=== PATIENT | female | born 1980 | race Asian ===

== ENCOUNTER 2018-12-02 09:17 | Inpatient (IN) | payer OTHER ==
[~2018-12-02] VITALS: Ht 149.9 cm; Wt 71.8 kg
[2018-12-03] VITALS (59 sets, daily range): BP systolic 90–139; BP diastolic 50–85; PULSE 63–113; TEMP 97.4–98.1
--- NOTE | 2018-12-03 07:20 | NUR ---
Patient ambulatory to unit accompanied by significant other for scheduled induction of labor. Patient states only complication of is GDM-diet controlled. Patient states she has not checked her blood sugars recently. FHR and contraction monitors placed and explained. Consents signed. Assessment completed. Blood sugar checked using [facility] glucometer, 82. IV started in left wrist at 0745, labs collected from IV site and sent to lab. Lr infusing without difficulty. 0800: Pitocin started at 2mu/min.
[2018-12-03] MEDS ORDERED: ONE DAILY1 TA1 PO (07:33)
[2018-12-03 08:07] LABS: HEMOGLOBIN 11.5 g/dl (12.5-16.0); MEAN CELL VOLUME 84 fl (80.0-100.0); MEAN CORPUSCULAR HEMOGLOBIN 28 pg (27.0-31.0); MEAN CORPUSCULAR HGB CONC 33 g/dl (33.0-37.0); MEAN PLATELET VOLUME 9.9 fl (7.4-10.4); PLATELET COUNT 271 K/mm3 (130-400); RED BLOOD COUNT 4.16 M/mm3 (4.10-5.30); REDCELL DISTRIBUTION WIDTH-CV 13.6 % (11.5-14.5)
[2018-12-03 08:09] LABS: HEMATOCRIT 35.1 % (37.0-47.0)
--- NOTE | 2018-12-03 08:50 | NUR ---
0850: Dr. Macias on unit and FHR and contraction pattern reviewed. 0855: Dr. Macias at bedside. AROM with moderate amount of clear fluid noted. 2//-[address] Macias exam. FHR acceleration up to 180-190 bpm after AROM but back down to 150 bpm after 3 minutes. Pericare provided. Patient states she is feeling the contractions and they are getting stronger. Dr. Macias states patient can have an epidural when desires.
[2018-12-03 09:19] LABS: BAND 4 % (0-10); EOSINOPHIL 3 % (0-4); LYMPHOCYTE 33 % (20.0-51.0); NEUTROPHILS 55 % (42.0-75.2); PLATELET ESTIMATE NORMAL (NORMAL)
--- NOTE | 2018-12-03 10:05 | NUR ---
1005: Patient breathing heavily through contractions. Requests an epidural at this time. LR bolus infusing. Trina Dwyer CRNA called and notified of patient request.
--- NOTE | 2018-12-03 10:25 | NUR ---
1025: Trina Dwyer CRNA in room for epidural placement. Patient back from bathroom and sitting up at the side of bed for epidural. 1030: FHR not tracing consistently while patient in correct position for epidural, repostioning FHR monitor. At 1030 FHR tracing 90-110 bpm and slowly coming up to 120-125 bpm. Epidural single shot at 1037. No reaction to single shot. Epidural secured to patients back. Patient repositioned wedged left at 1045. See anesthesia records. SVE /-2. 1050: Trina Dwyer CRNA at bedside and epidural test dose. No reaction to test dose. Patient repositioned wedged right.
--- NOTE | 2018-12-03 16:30 | NUR ---
Dr. Macias at nurses station. Reviews FHR and contraction pattern. At bedside. SVE anterior lip noted. Will continue to monitor. 1642: Dr. Macias gives verbal order to increase pitocin to 8mu/min.
--- NOTE | 2018-12-03 17:10 | NUR ---
1710: Dr. Macias in patient room. SVE and cervix noted to be swollen and not complete. Dr. Macias discusses with patient the need to continue with section delivery due to failure to progress. Patient verbalizes understanding. Pitocin off at 1712. Patient prepped for OR. FHR and TOCO monitors off at 1721 and patient in OR at 1725.
[2018-12-04 02:15] VITALS: BP 117/70; PULSE 100; TEMP 98
--- NOTE | 2018-12-04 06:15 | NUR ---
Rests in bed, alert. Denies any needs at this time.
[2018-12-04 07:47] LABS: BASO % 0.2 % (0.0-2.0); EOS % 0.2 % (0-4.0); GRAN # 16.2 (1.4-6.5); HEMATOCRIT 30.4 % (37.0-47.0); HEMOGLOBIN 10.3 g/dl (12.5-16.0); LYMPH # 1.9 (1.2-3.4); LYMPH % 9.7 % (20.0-51.0); MEAN CELL VOLUME 84 fl (80.0-100.0); MEAN CORPUSCULAR HEMOGLOBIN 28 pg (27.0-31.0); MEAN CORPUSCULAR HGB CONC 34 g/dl (33.0-37.0); MEAN PLATELET VOLUME 9.8 fl (7.4-10.4); MONO # 0.9 (0.1-0.6); MONO % 4.9 % (1.7-9.3); PLATELET COUNT 252 K/mm3 (130-400); RED BLOOD COUNT 3.64 M/mm3 (4.10-5.30); REDCELL DISTRIBUTION WIDTH-CV 13.6 % (11.5-14.5)
[2018-12-04 08:15] VITALS: BP 95/59; PULSE 98; TEMP 97.2
--- NOTE | 2018-12-04 08:15 | NUR ---
Up in room. Changes babys diaper. Denies any needs at this time.
[2018-12-04] MEDS ORDERED: IBU600 MG PO (08:58)
[2018-12-04] MEDS ORDERED: PERCOCET 325 MG1 TA2 PO (08:58)
--- NOTE | 2018-12-04 09:10 | NUR ---
Follow-up visit; Patient thanked Respite Provider for looking in on her and her baby girl and offering prayer and blessings.
[2018-12-04 11:10] VITALS: BP 105/59; PULSE 82; TEMP 97.2
--- NOTE | 2018-12-04 12:30 | NUR ---
Rests in bed with baby on chest. Ibuprofen 600 mg p.o. given as ordered.
[2018-12-04 16:30] VITALS: BP 112/66; PULSE 101; TEMP 97.6
[2018-12-04 21:10] VITALS: BP 110/63; PULSE 96; TEMP 97.9
[2018-12-05 09:20] VITALS: BP 120/59; PULSE 86; TEMP 97.5
== END 2018-12-05 12:40 | disposition home or self-care (01) | DRG 788 ==
LOC: OB 12-03 07:09 → LDR 12-03 07:09 → OB 12-04 07:08
PROVIDERS: ADMIT Obstetrics & Gynecology
PROC: 10D00Z1 Extraction of Products of Conception, Low, Open Approach (ICD-10-PCS; principal; 2018-12-03)
PROC: 10907ZC Drainage of Amniotic Fluid, Therapeutic from Products of Conception, Via Natural or Artificial Opening (ICD-10-PCS; 2018-12-03)
PROC: 3E033VJ Introduction of Other Hormone into Peripheral Vein, Percutaneous Approach (ICD-10-PCS; 2018-12-03)
DX: O24.420 Gestational diabetes mellitus in childbirth, diet controlled (principal); Z3A.00 Weeks of gestation of pregnancy not specified; Z37.0 Single live birth; O62.0 Primary inadequate contractions; Z3A.39 39 weeks gestation of pregnancy
CPT/HCPCS: J0690; J1885; J2175; J2210; J2270; J2370; J2405; J2590; J2795; J7120

== ENCOUNTER 2018-12-06 07:49 | Emergency (ER) | payer OTHER ==
[~2018-12-06] VITALS: Ht 149.9 cm; Wt 70.9 kg
[~2018-12-06 07:49] MED LIST: IBU600 MG PO; ONE DAILY1 TA1 PO; PERCOCET 325 MG1 TA2 PO
[2018-12-06 07:54] VITALS: BP 123/72; TEMP 97.8
[2018-12-06 08:39] LABS: BASO % 0.2 % (0.0-2.0); EOS # 0.1 (0.0-0.7); EOS % 1.1 % (0-4.0); GRAN # 9.1 (1.4-6.5); GRAN % 75.9 % (42.2-75.2); LYMPH % 16.3 % (20.0-51.0); MEAN CELL VOLUME 85 fl (80.0-100.0); MEAN CORPUSCULAR HGB CONC 34 g/dl (33.0-37.0); MEAN PLATELET VOLUME 9.4 fl (7.4-10.4); MONO # 0.6 (0.1-0.6); MONO % 5.3 % (1.7-9.3); PLATELET COUNT 324 K/mm3 (130-400); REDCELL DISTRIBUTION WIDTH-CV 13.8 % (11.5-14.5)
[2018-12-06 08:41] LABS: HEMATOCRIT 24.5 % (37.0-47.0); HEMOGLOBIN 8.2 g/dl (12.5-16.0); MEAN CORPUSCULAR HEMOGLOBIN 28 pg (27.0-31.0)
[2018-12-06 08:50] LABS: ALBUMIN 2.8 gm/dL (3.5-5.0); BILIRUBIN,TOTAL 0.4 mg/dL (0.0-1.0); C-REACTIVE PROTEIN 6.5 mg/dL (0.0-0.9); CALCIUM 8.2 mg/dL (8.4-10.2); CREATININE, serum 0.8 mg/dL (0.52-1.25); POTASSIUM 3.9 mmol/L (3.4-5.0); TOTAL PROTEIN 5.9 gm/dL (6.4-8.2)
[2018-12-06 11:25] LABS: COLLECTION METHOD CLEAN CATCH
[2018-12-06 11:55] LABS: MUCOUS Present /lpf; PH 6 (5-8); URINE APPEARANCE Clear; URINE BACTERIA None Seen /hpf; URINE BILIRUBIN Negative (NEGATIVE); URINE BLOOD 3+ (NEGATIVE); URINE COLOR Yellow; URINE GLUCOSE Negative (NEGATIVE); URINE KETONE Negative (NEGATIVE); URINE LEUKOCYTE ESTERASE Negative (NEGATIVE); URINE NITRATE Negative (NEGATIVE); URINE PROTEIN(semi-quant) Negative (NEGATIVE); URINE RBC 20-50 /hpf; URINE UROBILINOGEN Negative (NEGATIVE)
[2018-12-06 12:30] VITALS: PULSE 85
== END 2018-12-06 12:30 | disposition home or self-care (01) ==
LOC: COL.ER 07:49
PROVIDERS: Nurse Practitioner
DX: R10.9 Unspecified abdominal pain (principal); Z98.890 Other specified postprocedural states
CPT/HCPCS: J1885; J2270; J2405; J7030; Q9967